=== PATIENT | female | born 1970 | race Caucasian/White ===

== ENCOUNTER 2020-02-11 13:53 | Inpatient (IN) | payer OTHER ==
--- OUTSIDE RECORDS SUMMARY | 2020-02-11 14:05 | XMS ---
:1970 [facility] Organization [facility] Support Name Relationship Address Phone UE Unavailable Unavailable Unavailable EVAN PARADA MOTHER [address] [place] [address] Re-disclosure Warning The records that you are about to access may contain information from federally- assisted alcohol or drug abuse programs. If such information is present, then the following federally mandated warning applies: This information has been disclosed to you from records protected by federal confidentiality rules (42 CFR part 2). The federal rules prohibit you from making any further disclosure of this information unless further disclosure is expressly permitted by the written consent of the person to whom it pertains or as otherwise permitted by 42 CFR part 2. A general authorization for the release of medical or other information is NOT sufficient for this purpose. The Federal rules restrict any use of the information to criminally investigate or prosecute any alcohol or drug abuse patient.The records that you are about to access may contain highly sensitive health information, the redisclosure of which is protected by Article 27-F of the [facility] Public Health law. If you continue you may haveaccess to information: Regarding HIV / AIDS; Provided by facilities licensed or operated by the [facility] Office of Mental Health; or Provided by the [facility] Office for People With Developmental Disabilities. If such information is present, then the following [facility] mandated warning applies: This information has been disclosed to you from confidential records which are protected by state law. State law prohibits you from making any further disclosure of this information without the specific written consent of the person to whom it pertains, or as otherwise permitted by law. Any unauthorized further disclosure in violation of state law may result in a fine or assisted sentence or both. A general authorization for the release of medical or other information is NOT sufficient authorization for further disclosure. Insurance Providers Payer name Policy type Policy ID Covered Covered constitution party's Policy P miguel / Coverage constitution party ID relationship to Caceres Inf ormation type caceres BEACON [id number] SP [id number] [facility]
--- NOTE | 2020-02-11 14:20 | BHS.RME ---
2019 N Coronavirus Screen - COVID-19 Screening Questions Dx of COVID-19 or had a positive test in the last 4 weeks?: No Contact with known/suspected COVID patient in last 14 days?: No Any of these symptoms or contact with someone who has?: Cough (smoker), Nausea or vomiting (withdrawal symptoms) Traveled domestically/internationally in the last 14 days?: No Screen score: 2 Screen result: Positive Substance Use & Tx History - Last Treatment Date of last treatment: first PC visit Physical/Psych/Mental Status - Behavior General Behavior: Decreased activity Eye Contact: Normal - Cooperativeness Cooperativeness: Cooperative - Thinking Thought Processes: Tight Thought content: Future oriented - Physical Health Problems Is patient presently having any pain?: No Does patient presently have any injuries (include location): No Does patient currently have a fever: No CIWA Nausea/Vomitin-Mild Nausea/No Vomiting Muscle Tremors: 4-Moderate,w/Arms Extend Anxiety: 3 Agitation: 2 Paroxysmal Sweats: 2 Orientation: 1-Uncertain about Date Tacttile Disturbances: 0-None Auditory Disturbances: 0-None Visual Disturbances: 0-None Headache: 0-None Present CIWA-Ar Total Score: 13
[2020-02-11 15:49] VITALS: BMI 19.5
--- NOTE | 2020-02-11 15:56 | HP ---
CIWA Score Nausea/Vomitin-Mild Nausea/No Vomiting Muscle Tremors: 4-Moderate,w/Arms Extend Anxiety: 3 Agitation: 2 Paroxysmal Sweats: 2 Orientation: 1-Uncertain about Date Tacttile Disturbances: 0-None Auditory Disturbances: 0-None Visual Disturbances: 0-None Headache: 0-None Present CIWA-Ar Total Score: 13 - Admission Criteria OASAS Guidelines: Admission for Medically Managed Detox: Requires at least one of the followin. CIWA greater than 12 2. Seizures within the past 24 hours 3. Delirium tremens within the past 24 hours 4. Hallucinations within the past 24 hours 5. Acute intervention needed for co occurring medical disorder 6. Acute intervention needed for co occurring psychiatric disorder 7. Severe withdrawal that cannot be handled at a lower level of care (continued vomiting, continued diarrhea, abnormal vital signs) requiring intravenous medication and/or fluids 8. Admitting History and Physical - Admission History of Present Illness: Pt. is a 49 y.o. F w/ PMHx. of Asthma presents to [facility] for the first time at the request of her counselor for drinking a lot. Pt. was last in a Detox facility 5 years ago. Was sober for 3 months. Has been drinking consistently since relapse. Pt. endorses history of withdrawal seizures, last 2 months ago, and blackouts last occuring last week. Pt. has a daily eyeopener drink. That was the longest time with being sober. Pt. endorses taking Methadone 70mg daily given through [facility]. Pt. denies any drug allergies. 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: No: Alzheimer's, CVA, Dementia, Migraine, Multiple Sclerosis, Peripheral Neuropathy, Parkinson's, Seizure, Syncope, TIA, Vertigo, Other Cardiovascular: No: AFIB, Aneurysm, Aortic Insufficiency, Aortic Stenosis, CAD, CHF, Deep Vein Thrombosis, HTN, Hyperlipdemia, WI, Mitral Insufficiency, Mitral Stenosis, Murmur, Pulmonary Hypertension, Other Pulmonary: No: Asthma, Bronchitis, Cancer, COPD, O2 Dependent, Pneumonia, Previously Intubated, Pulmonary Embolus, Pulmonary Fibrosis, Sleep Apnea, Other Gastrointestinal: No: Ascites, Cancer, Constipation, Crohn's Disease, Diverticulitis, Diverticulosis, Esophageal Varices, Gastritis, GERD, GI Bleed, Hemorrhoids, Hiatal Hernia, Inflamatory Bowel Disease, Irritable Bowel Disease, Pancreatitis, Peptic Ulcer Disease, Ulcerative Colitis, Other Hepatobiliary: No: Cirrhosis, Cholelithiasis, Cholecystitis, Choledocholithiasis, Hepatitis A, Hepatitis B, Hepatitis C, Other Renal/: No: Renal Failure, Renal Inusuff, BPH, Cancer, Hematuria, Hemodialysis, Neurogenic Bladder, Renal Calculi, UTI, Other Reproductive: No: Ectopic , Endometriosis, Fibroids, PID, Polycystic Ovary Syndrome, Postmenopausal, Other ...: Yes ...: 1 ...Para: 1 Heme/Onc: No: Anemia, B12 Deficiency, Bleeding Disorder, Cancer, Current Chemotherapy, Current Radiation Therapy, Hemochromatosis, Hypercoaguable State, Myeloproliferative Synd, Sickle Cell Disease, Sickle Cell Trait, Thrombocytopenia, Other Infectious Disease: No: AIDS, C-Diff, Herpes Zoster, HIV, MRSA, STD's, Tuberculosis, VREF, Other Psych: No: Addictions, Anxiety, Bipolar, Depression, Panic, Psychosis, Schizophrenia, Other Musculoskeletal: No: Bursitis, Chronic low back pain, Hemiparesis, Hemiplegia, Osteoarthritis, Paraplegia, Other Rheumatology: No: Fibromyalgia, Gout, Lupus, Rheumatoid Arthritis, Sarcoidosis, Vasculitis, Other ENT: No: Allergic Rhinitis, Sinusitis, Other Endocrine: No: Rulo's Disease, Milford's Disease, Diabetes Insipidus, Diabetes Mellitus, Hyperparathyroidism, Hyperthyroidism, Hypothyroidism, Osteopenia, SIADH, Other Dermatology: No: Basal Cell, Cellulitis, Eczema, Melanoma, Psoriasis, Squamous Cell, Other - Past Surgical History Past Surgical History: Yes: None - Smoking History Smoking history: Current every day smoker Have you smoked in the past 12 months: Yes Aproximately how many cigarettes per day: 5 - Alcohol/Substance Use Hx Alcohol Use: Yes Number of Drinks Daily: 6 (24 Oz. cans/ day) History of Substance Use: reports: None - Social History Usual Living Arrangement: Yes: With Parent History of Recent Travel: No Admission [facility] Exam Limitations: No Limitations, Intoxication - Ebola screening Have you traveled outside of the country in the last 21 days: No Have you had contact with anyone from an Ebola affected area: No Have you been sick,other than usual withdrawal symptoms: No Do you have a fever: No - Review of Systems Constitutional: Chills, Diaphoresis, Fever, Loss of Appetite (over the last 3 years), Night Sweats, Unintentional Wgt. Loss (lost 46 lbs over the last year) EENT: reports: Blurred Vision (3 years). denies: Difficulty Swallowing, Throat Pain Respiratory: reports: Cough. denies: Shortness of Breath, Wheezing, Productive cough Cardiac: reports: Palpitations (over the last 3-4 months). denies: Chest Pain GI: reports: Diarrhea, Nausea. denies: Constipated (last 2 days- happened twice), Difficulty Swallowing, Vomiting : denies: Dysuria, Discharge, Hematuria Musculoskeletal: denies: Joint Pain, Muscle Pain Integumentary: reports: Lesions (on forearms from scratching?), Rash (for a few months, pruritic, itching makes it worse, has tried a "cream that her mother gave her but it has not helped") Neuro: reports: Numbness (numbenss in feet), Tremors, Dizziness Endocrine: reports: Unexplained Weight Loss Psychiatric: reports: Anxious Patient History - Patient Medical History Hx Asthma: Yes Hx Hypertension: Yes (No medications) Hx Seizures: Yes (withdrawal, last 2 months ago ) - Patient Surgical History Past Surgical History: No - PPD History Previous Implant?: Yes Documented Results: Negative w/o proof PPD to be Administered?: Yes - Reproductive History Patient is a Female of Child Bearing Age (11 -55 yrs old): Yes Patient : No - Smoking Cessation Smoking history: Current every day smoker Initiated information on smoking cessation: Yes 'Breaking Loose' booklet given: 02/11/20 - Substance & Tx. History Hx Alcohol Use: Yes (Six 24 Oz. beers/ day) Hx Substance Use: No Substance Use Type: Alcohol Admission Physical Exam BHS - Vital Signs Vital Signs: Vital Signs - 24 hr 02/11/20 15:47 Temperature 97.6 F Pulse Rate 86 Respiratory 14 Rate Blood Pressure 128/87 - Physical General Appearance: Yes: Alcohol on Breath, Intoxicated, Thin, Tremorous HEENTM: Yes: EOMI, MARIA EUGENIA, Thrush (minimal around tongue, however may be skin on tongue), Lessions, Other (poor dentition) Respiratory: Yes: Chest Non-Tender, Lungs Clear, Normal Breath Sounds, No Respiratory Distress, No Accessory Muscle Use, Other Neck: Yes: Trachea in good position Breast: Yes: Breast Exam Deferred Cardiology: Yes: Regular Rhythm, S1, S2, Tachycardia Abdominal: Yes: Normal Bowel Sounds, Non Tender, Flat, Soft Genitourinary: No: Burning Back: No: CVA Tenderness Musculoskeletal: Yes: full range of Motion, Gait Steady Extremities: Yes: Normal Range of Motion, Non-Tender, Erythema. 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
[2020-02-11] MEDS ORDERED: BISMUTH SUBSALICYLATE 524 MG/30 ML UD PO PRN (16:12)
[2020-02-11] MEDS ORDERED: ACETAMINOPHEN 325 MG TABLET (FP) PO PRN ×2 (16:12)
[2020-02-11] MEDS ORDERED: METHOCARBAMOL 500 MG TABLET PO PRN (16:12)
[2020-02-11] MEDS ORDERED: IBUPROFEN 400 MG TABLET (FP) PO PRN (16:12)
[2020-02-11] MEDS ORDERED: MENTHOL/PHENOL 1 EACH UD MM PRN (16:12)
[2020-02-11] MEDS ORDERED: MAGNESIUM HYDROX 2400MG/30ML ORAL SUSPENSION 30 ML CUP PO PRN (16:12)
[2020-02-11] MEDS ORDERED: NICOTINE POLACRILEX 2 MG GUM BUC PRN (16:12)
[2020-02-11] MEDS ORDERED: MAG HYDROX/AL HYDROX/SIMETH 30 ML UNIT-DOSE CUP PO PRN (16:12)
[2020-02-11] MEDS ORDERED: ONDANSETRON *ODT* 4 MG TABLET SL PRN (16:12)
[2020-02-11] MEDS ORDERED: chlordiazePOXIDE HCL 25 MG CAPSULE PO PRN (16:12)
[2020-02-11] MEDS ORDERED: MAGNESIUM CITRATE 300 ML BOTTLE PO PRN (16:12)
[2020-02-11] MEDS ORDERED: ALBUTEROL SO4 HFA INHALER IH PRN (16:15)
--- OUTSIDE RECORDS SUMMARY | 2020-02-11 16:36 | XMS ---
:1970 [facility] Support Name Relationship Address Phone UE Unavailable Unavailable Unavailable EVAN PARADA MOTHER [address] [place] [address] Re-disclosure Warning The records that you are [...] is protected by Article 27-F of the [facility] Public Health law. If you continue you may haveaccess to information: Regarding HIV / AIDS; Provided by facilities licensed or operated by the [facility] Office of Mental Health; or Provided by the [facility] Office for People With Developmental Disabilities. If such information is present, then the following [facility] mandated warning applies: This information has [...] law may result in a fine or shelter sentence or both. A general authorization for the release of medical or other information is NOT sufficient authorization for further disclosure. Insurance Providers Payer name Policy type Policy ID Covered Covered alliance party's Policy P miguel / Coverage alliance party ID relationship to Caceres Inf ormation type caceres BEACON [id number] SP [id number] [facility]
[2020-02-11] MEDS: hydrOXYzine PAMOATE 25 MG CAPSULE (FP) PO SCH ×2 (17:35→22:35)
[2020-02-11] MEDS: chlordiazePOXIDE HCL 25 MG CAPSULE PO SCH ×2 (17:35→22:35)
[2020-02-11] MEDS: MELATONIN 5 MG TABLETS PO SCH (22:35)
[2020-02-11] MEDS: THIAMINE HCL 100 MG TABLET (FP) PO SCH (22:35)
[2020-02-12] MEDS: chlordiazePOXIDE HCL 25 MG CAPSULE PO SCH ×2 (05:42→10:10)
[2020-02-12] MEDS: hydrOXYzine PAMOATE 25 MG CAPSULE (FP) PO SCH (05:43)
--- NOTE | 2020-02-12 08:59 | PN ---
BHS CIWA - CIWA Score Nausea/Vomitin-Mild Nausea/No Vomiting Muscle Tremors: 4-Moderate,w/Arms Extend Anxiety: 3 Agitation: 0-Normal Activity Paroxysmal Sweats: No Perspiration Orientation: 0-Oriented Tacttile Disturbances: 0-None Auditory Disturbances: 0-None Visual Disturbances: 2-Mild Sensitivity Headache: 2-Mild CIWA-Ar Total Score: 12 BHS Progress Note (SOAP) Subjective: 49 years old female was admitted on 02/11/20 for alcohol withdrawal sx management treating with [facility]rium detox regiment ms dimas states that she has long history of anxiety and was taking antidepressant medication ms dimas requests to be seen by a psychiatrist "I can not keep drinking alcohol anymore" tremor increase vistaril to 50mg po discontinue isolation encourage ms dimas to talk about her feelings and concerns regarding alcohol abuse treatment to staff bmi 19.6 ensure 120 ml po tid with meals Objective: 02/12/20 09:04 Vital Signs - 24 hr 02/11/20 02/11/20 02/11/20 15:47 17:08 20:23 Temperature 97.6 F 97.5 F L 97.3 F L Pulse Rate 86 93 H 88 Respiratory 14 18 16 Rate Blood Pressure 128/87 136/87 113/72 O2 Sat by Pulse 95 97 Oximetry (%) 02/12/20 02/12/20 06:43 08:48 Temperature 97.5 F L 96.8 F L Pulse Rate 86 85 Respiratory 18 18 Rate Blood Pressure 122/84 110/70 O2 Sat by Pulse 99 99 Oximetry (%) 02/12/20 09:04 lab pending Assessment: 02/12/20 09:04 alcohol withdrawal Plan: librium regiment
[2020-02-12] MEDS: PRENATAL VITAMINS W/ FOLIC ACID TABLET (FP) PO SCH (10:09)
[2020-02-12] MEDS: hydrOXYzine PAMOATE 50 MG CAPSULE (FP) PO SCH ×4 (10:09→22:25)
[2020-02-12] MEDS: NICOTINE 7 MG/24 HOURS TOPICAL PATCH TD SCH (10:10)
[2020-02-12] MEDS ORDERED: METHADONE HCL 10 MG TABLET PO ONE (10:13)
[2020-02-12] MEDS ORDERED: METHADONE 40 MG, METHADONE 30 MG PO ONE (10:27)
[2020-02-12] MEDS ORDERED: METHADONE HCL 40 MG DISPERSABLE TABLET ONE (10:50)
[2020-02-12] MEDS ORDERED: METHADONE HCL 10 MG TABLET ONE (10:50)
[2020-02-12 11:19] LABS: HEMATOCRIT 37.2 % (32.4-45.2); HEMOGLOBIN 12.8 GM/dL (10.7-15.3); MCH 36.2 pg (25.7-33.7); MCHC 34.4 g/dl (32.0-36.0); MEAN PLT VOLUME 8.9 fl (7.5-11.1); RBC 3.54 M/mm3 (3.60-5.2); RDW 13.3 % (11.6-15.6); WHITE BLOOD COUNT 3.6 K/mm3 (4.0-10.0)
[2020-02-12 11:21] LABS: POTASSIUM 3.4 mmol/L (3.5-5.1)
[2020-02-12 11:22] LABS: PLATELET COUNT 30 K/MM3 (134-434)
[2020-02-12 11:27] LABS: BLOOD UREA NITROGEN 7.3 mg/dL (7-18); CALCIUM 9.2 mg/dL (8.5-10.1)
[2020-02-12 11:31] LABS: CREATININE 0.5 mg/dL (0.55-1.3)
[2020-02-12 11:33] LABS: BILIRUBIN,TOTAL 4.2 mg/dL (0.2-1); TOT PROT 7.7 g/dl (6.4-8.2)
[2020-02-12] MEDS ORDERED: LORazepam 1 MG TABLET PO PRN (12:15)
[2020-02-12] MEDS: LORazepam 2 MG TABLET PO SCH ×2 (17:43→22:25)
[2020-02-12] MEDS: THIAMINE HCL 100 MG TABLET (FP) PO SCH (22:25)
[2020-02-12] MEDS: MELATONIN 5 MG TABLETS PO SCH (22:26)
[2020-02-13] MEDS: hydrOXYzine PAMOATE 50 MG CAPSULE (FP) PO SCH ×4 (04:07→13:03)
[2020-02-13] MEDS ORDERED: chlordiazePOXIDE HCL 25 MG CAPSULE PO SCH (05:00)
[2020-02-13] MEDS ORDERED: METHADONE HCL 10 MG TABLET ONE (05:05)
[2020-02-13] MEDS ORDERED: METHADONE HCL 40 MG DISPERSABLE TABLET ONE (05:05)
[2020-02-13] MEDS: LORazepam 2 MG TABLET PO SCH ×2 (05:27→10:10)
[2020-02-13] MEDS ORDERED: METHADONE 40 MG, METHADONE 30 MG PO SCH (06:00)
[2020-02-13] MEDS ORDERED: METHADONE HCL 10 MG TABLET PO SCH (06:00)
--- NOTE | 2020-02-13 09:55 | PN ---
[facility] CIWA - CIWA Score Nausea/Vomitin-No Nausea/No Vomiting Muscle Tremors: 4-Moderate,w/Arms Extend Anxiety: 3 Agitation: 0-Normal Activity Paroxysmal Sweats: No Perspiration Orientation: 1-Uncertain about Date Tacttile Disturbances: 1-Very Mild Itch/Numbness Auditory Disturbances: 0-None Visual Disturbances: 0-None Headache: 0-None Present CIWA-Ar Total Score: 9 BHS Progress Note (SOAP) Subjective: Feels anxious, arms are itchy which predates admission Objective: 02/13/20 09:53 PE Gnl: WDWN MS: anxious Motor: ml limb motion Coord: intact, tremulous Gait: deferred Laboratory Tests 02/11/20 02/12/20 02/12/20 16:40 07:56 07:56 WBC 3.6 L RBC 3.54 L Hgb 12.8 Hct 37.2 MCV 105.0 H MCH 36.2 H MCHC 34.4 RDW 13.3 Plt Count 30 L* MPV 8.9 Sodium Potassium Chloride Carbon Dioxide Anion Gap BUN Creatinine Est GFR (CKD-EPI)AfAm Est GFR (CKD-EPI)NonAf Random Glucose Calcium Total Bilirubin AST ALT Alkaline Phosphatase Total Protein Albumin Syphilis Serology Non-reactive COVID-19 (BREANA) Not detected HIV Ag/Ab Combo Qual 02/12/20 02/12/20 07:56 07:56 WBC RBC Hgb Hct MCV MCH MCHC RDW Plt Count MPV Sodium 134 L Potassium 3.4 L Chloride 97 L Carbon Dioxide 32 Anion Gap 6 L BUN 7.3 Creatinine 0.5 L Est GFR (CKD-EPI)AfAm 132.65 Est GFR (CKD-EPI)NonAf 114.45 Random Glucose 98 Calcium 9.2 Total Bilirubin 4.2 H AST 342 H ALT 56 Alkaline Phosphatase 501 H Total Protein 7.7 Albumin 3.0 L Syphilis Serology COVID-19 (BREANA) HIV Ag/Ab Combo Qual Negative Home Medication List Medication Instructions Recorded Confirmed Type Albuterol Sulfate Inhaler - 2 inh PO Q4H PRN 02/11/20 02/11/20 History [Ventolin Hfa Inhaler -] Methadone [Dolophine -] 70 mg PO DAILY 02/11/20 02/11/20 History Active Medications Generic Name Dose Route Start Last Admin Trade Name Freq PRN Reason Stop Dose Admin Al Hydroxide/Mg Hydroxide 30 ml 02/11/20 16:12 Mylanta Oral Suspension - PO Q6H PRN DYSPEPSIA Albuterol Sulfate 2 puff 02/11/20 16:15 Ventolin Hfa Inhaler - IH Q4H PRN SHORT OF BREATH/WHEEZING Bismuth Subsalicylate 524 mg 02/11/20 16:12 Pepto-Bismol - PO Q1H PRN DIARRHEA Eucalyptus/Menthol/Phenol/Sorbitol 1 each 02/11/20 16:12 Cepastat Lozenge - MM 02/17/20 16:12 Q4H PRN SORE THROAT Hydroxyzine Pamoate 50 mg 02/12/20 09:00 02/13/20 05:27 Vistaril - PO 02/16/20 23:59 50 mg Q4H DEB Administration Influenza Virus Vaccine 60 mcg 02/13/20 12:00 Flulaval Quad [id number] Syr IM 02/13/20 12:01 .ONCE ONE Lorazepam 1 mg 02/14/20 05:00 Ativan - PO 02/14/20 23:01 0500,1100,1700,2300 DEB Lorazepam 1 mg 02/12/20 12:15 Ativan - PO 02/14/20 23:59 Q4H PRN Symptoms of Withdrawal Lorazepam 2 mg 02/12/20 17:00 02/13/20 05:27 Ativan PO 02/13/20 23:01 2 mg 0500,1100,1700,2300 DEB Administration Lorazepam 0.5 mg 02/15/20 05:00 Ativan - PO 02/15/20 23:01 Q6H DEB Lorazepam 0.5 mg 02/15/20 00:00 Ativan - PO 02/16/20 00:00 Q4H PRN Symptoms of Withdrawal Lorazepam 0.5 mg 02/16/20 05:00 Ativan - PO 02/16/20 05:01 ONCE ONE Magnesium Citrate 300 ml 02/11/20 16:12 Citroma - PO Q48H PRN CONSTIPATION Magnesium Hydroxide 30 ml 02/11/20 16:12 Milk Of Magnesia - PO PRN PRN CONSTIPATION Melatonin 5 mg 02/11/20 22:00 02/12/20 22:26 Melatonin PO 5 mg HS DEB Administration Methadone HCl 40 mg/ Methadone 70 mg 02/13/20 06:00 02/13/20 05:27 HCl 30 mg PO 02/19/20 05:59 70 mg DAILY@0600 DEB Administration Methocarbamol 500 mg 02/11/20 16:12 Robaxin - PO 02/17/20 16:12 Q6H PRN MUSCLE SPASMS Nicotine 7 mg 02/12/20 10:00 02/12/20 10:10 Nicoderm Patch - TD 7 mg DAILY DEB Administration Nicotine Polacrilex 2 mg 02/11/20 16:12 Nicorette Gum - BUC Q2H PRN NICOTINE REPLACEMENT RX Ondansetron HCl 4 mg 02/11/20 16:12 Zofran Odt - SL Q8H PRN Nausea/Vomiting Multivit/Folic Acid/Iron 1 tab 02/12/20 10:00 02/12/20 10:09 Vitamins (Sjr) - PO 1 tab DAILY DEB Administration Thiamine HCl 100 mg 02/11/20 22:00 02/12/20 22:25 Vitamin B1 - PO 100 mg HS DEB Administration Vital Signs Temperature 98.2 F 02/13/20 08:42 Pulse Rate 112 H 02/13/20 08:42 Respiratory Rate 18 02/13/20 08:42 Blood Pressure 100/79 02/13/20 08:42 O2 Sat by Pulse Oximetry (%) 96 02/13/20 08:42 Assessment: 02/13/20 09:55 1. Alcohol use disorder 02/13/20 09:55 2. Anxiety, pt requested psychiatry eval 3. Elevated LFTs, changed to Ativan yesterday 4. low platelets Plan: 1. Ativan detox protocol, projected completion on 02/15 2. Psychiatry consult pending, pt has prn vistaril ordered 3. Repeat CBC pending from today
[2020-02-13] MEDS: NICOTINE 7 MG/24 HOURS TOPICAL PATCH TD SCH (10:11)
[2020-02-13] MEDS: PRENATAL VITAMINS W/ FOLIC ACID TABLET (FP) PO SCH (10:11)
[2020-02-13 10:29] LABS: BASO % 0.8 % (0-2.0); EOS % 1.4 % (0-4.5); HEMATOCRIT 37.3 % (32.4-45.2); HEMOGLOBIN 12.5 GM/dL (10.7-15.3); LYMPH % 14.3 % (8-40); MCH 35.1 pg (25.7-33.7); MCHC 33.5 g/dl (32.0-36.0); MEAN CELL VOLUME 104.6 fl (80-96); MEAN PLT VOLUME 8.9 fl (7.5-11.1); MONO % 8.1 % (3.8-10.2); NEUT % 75.4 % (42.8-82.8); RBC 3.56 M/mm3 (3.60-5.2); RDW 13.2 % (11.6-15.6); WHITE BLOOD COUNT 3.2 K/mm3 (4.0-10.0)
[2020-02-13 10:39] LABS: PLATELET COUNT 30 K/MM3 (134-434)
[2020-02-13 10:40] LABS: SGOT/AST 266 U/L (15-37); SGPT/ALT 52 U/L (13-61)
[2020-02-13] MEDS ORDERED: FLU VACCINE (FLULAVAL) PF 60 MCG/0.5 ML SYRINGE 2020-2021 IM ONE (12:00)
[2020-02-13 12:56] VITALS: BP 103/61; PULSE 73; TEMP 97.1
--- NOTE | 2020-02-13 13:52 | DS ---
[facility] Detox Discharge Summary Admission Date: 02/11/20 Discharge Date: 02/13/20 - History Present History: Alcohol Dependence - Physical Exam Results Vital Signs: Vital Signs Temperature 97.1 F L 02/13/20 12:55 Pulse Rate 73 02/13/20 12:55 Respiratory Rate 18 02/13/20 12:55 Blood Pressure 103/61 02/13/20 12:55 O2 Sat by Pulse Oximetry (%) 96 02/13/20 12:55 Pertinent Admission Physical Exam Findings: PE Gnl: WD, thin, tremulous MS: anxious CN: EOMI Motor: moves limb Cood: intact Gait: intact Ext; no bruising, no bleeding Imp 1. Alcohol use disorder 2. Pt insists on leaving, worried about family's health, states her brother and son are sick. Pt appears anxious/tremulous. Offered pt antianxiety/withdrawal medication, but she refused. Despite conversation discussing benefits of completing detox and dangers of leaving including but not limited to relapse, , injury, pt still insists on leaving. 3. Thrombocytopenia, pt is unaware of this problem in her past. Pt will need to see a hematology consultation. Asked pt to follow up with primary care to make arrangements. No signs of bleeding/bruising on PE - Medication Discharge Medications: Ambulatory Orders Albuterol Sulfate Inhaler - [Ventolin Hfa Inhaler -] 2 inh PO Q4H PRN 02/11/20 Methadone [Dolophine -] 70 mg PO DAILY 02/11/20 - AMA Did Patient Leave Against Medical Advice: Yes
--- NOTE | 2020-02-13 14:00 | CONSULT ---
[facility] Psychiatric Consult - Data Date of interview: 02/13/20 Admission source: [facility] Identifying data: Sign Wirer approached patient for psychiatric consultation. Patient stated, "I'm leaving. I need to take care of a family issue. If i come back i will see you." Psychiatric consultation refused.
[2020-02-14] MEDS ORDERED: chlordiazePOXIDE HCL 10 MG CAPSULE PO PRN
[2020-02-14] MEDS ORDERED: LORazepam 1 MG TABLET PO SCH (05:00)
[2020-02-14] MEDS ORDERED: chlordiazePOXIDE HCL 10 MG CAPSULE PO SCH (05:00)
[2020-02-15] MEDS ORDERED: LORazepam 0.5 MG TABLET PO PRN
[2020-02-15] MEDS ORDERED: chlordiazePOXIDE HCL 10 MG CAPSULE PO SCH (05:00)
[2020-02-15] MEDS ORDERED: LORazepam 0.5 MG TABLET PO SCH (05:00)
[2020-02-16] MEDS ORDERED: LORazepam 0.5 MG TABLET PO ONE (05:00)
[2020-02-16] MEDS ORDERED: chlordiazePOXIDE HCL 10 MG CAPSULE PO ONE (05:00)
== END 2020-02-13 14:11 | disposition home or self-care (01) | DRG 775 ==
LOC: YASAS 13:53 → Y3N 16:33
PROVIDERS: ADMIT Allergy & Immunology; ATTEND Allergy & Immunology
PROC: HZ2ZZZZ Detoxification Services for Substance Abuse Treatment (ICD-10-PCS; principal; 2020-02-11)
DX: F10.230 Alcohol dependence with withdrawal, uncomplicated (principal); F17.210 Nicotine dependence, cigarettes, uncomplicated; F41.9 Anxiety disorder, unspecified; D69.6 Thrombocytopenia, unspecified; G40.509 Epileptic seizures related to external causes, not intractable, without status epilepticus; G47.00 Insomnia, unspecified; I10 Essential (primary) hypertension; J45.909 Unspecified asthma, uncomplicated; L98.8 Other specified disorders of the skin and subcutaneous tissue; R21 Rash and other nonspecific skin eruption; R94.5 Abnormal results of liver function studies
CPT/HCPCS: 36415; 80053; 84450; 84460; 85025; 85027; 86780; 86803; 87389; C9803; Q2036; U0003